=== PATIENT | male | born 1945 | race Caucasian/White ===

== ENCOUNTER → 2023-07-03 12:21 | Outpatient (REF) | payer OTHER, SELFPAY | LOC: PAVMRI 12:21 | PROVIDERS: ATTENDING PHYSICIAN Physician Assistant Surgical; FAMILY PHYSICIAN Family Medicine | DX: M54.50 Low back pain, unspecified (principal); M54.6 Pain in thoracic spine | CPT/HCPCS: 72146; 72148 ==

== ENCOUNTER → 2023-07-29 16:36 | Outpatient (REF) | payer OTHER, SELFPAY | LOC: RAD 16:36 | PROVIDERS: ATTENDING PHYSICIAN Family Medicine | DX: R60.0 Localized edema (principal); R09.89 Other specified symptoms and signs involving the circulatory and respiratory systems | CPT/HCPCS: 71046; 93970 ==

== ENCOUNTER → 2023-07-30 14:37 | Outpatient (REF) | payer OTHER, SELFPAY | LOC: RCS 14:37 | PROVIDERS: ATTENDING PHYSICIAN Nurse Practitioner; FAMILY PHYSICIAN Family Medicine | DX: R06.02 Shortness of breath (principal); I48.0 Paroxysmal atrial fibrillation | CPT/HCPCS: 93306 ==

== ENCOUNTER → 2023-07-31 14:49 | Outpatient (REF) | payer OTHER, SELFPAY ==
[2023-07-31 16:13] LABS: ALT (SGPT) 15 U/L (0-50); AST (SGOT) 24 U/L (17-59); Albumin 4.5 g/dl (3.5-5.0); Alkaline Phosphatase 133 U/L (38-126); Blood Urea Nitrogen 39 mg/dl (9-20); Calcium 9.8 mg/dl (8.4-10.2); Carbon Dioxide 33 mmol/L (22-30); Chloride 96 mmol/L (98-107); Glucose 116 mg/dl (70-99); Magnesium 2.6 mg/dl (1.6-2.3); Potassium 4.7 mmol/L (3.5-5.1); Sodium 141 mmol/L (135-145); Total Bilirubin 0.6 mg/dl (0.2-1.3); Total Protein 7.1 g/dl (6.3-8.2); eGFR 47.95
== END ==
LOC: REG 14:49
PROVIDERS: ATTENDING PHYSICIAN Internal Medicine Cardiovascular Disease; FAMILY PHYSICIAN Family Medicine
DX: R55 Syncope and collapse (principal)
CPT/HCPCS: 36415; 80053; 83735

== ENCOUNTER → 2023-08-03 11:27 | Outpatient (REF) | payer OTHER, SELFPAY ==
[2023-08-03 12:40] LABS: ALT (SGPT) 14 U/L (0-50); AST (SGOT) 25 U/L (17-59); Albumin 4.3 g/dl (3.5-5.0); Alkaline Phosphatase 134 U/L (38-126); Blood Urea Nitrogen 33 mg/dl (9-20); Calcium 9.9 mg/dl (8.4-10.2); Carbon Dioxide 31 mmol/L (22-30); Chloride 101 mmol/L (98-107); Glucose 155 mg/dl (70-99); Potassium 4.8 mmol/L (3.5-5.1); Sodium 138 mmol/L (135-145); Total Bilirubin 0.7 mg/dl (0.2-1.3); Total Protein 6.7 g/dl (6.3-8.2); eGFR 52.09
== END ==
LOC: REG 11:27
PROVIDERS: ATTENDING PHYSICIAN Internal Medicine Cardiovascular Disease; FAMILY PHYSICIAN Family Medicine
DX: N17.9 Acute kidney failure, unspecified (principal)
CPT/HCPCS: 36415; 80053

== ENCOUNTER 2023-09-25 08:30 | Day surgery (SDC) | payer OTHER, SELFPAY ==
[2023-09-25] VITALS (7 sets, daily range): BP systolic 125–166; BP diastolic 71–85; BMI 28.9
[2023-09-25 09:02] LABS: Glucose - Point of Care 122 mg/dl (70-99)
[2023-09-25 13:42] LABS: Glucose - Point of Care 127 mg/dl (70-99)
== END 2023-09-25 15:00 | disposition home or self-care (01) ==
LOC: GI 08:30
PROVIDERS: ATTENDING PHYSICIAN Internal Medicine
DX: D12.0 Benign neoplasm of cecum (principal); D12.3 Benign neoplasm of transverse colon; D12.4 Benign neoplasm of descending colon; K63.89 Other specified diseases of intestine; D12.8 Benign neoplasm of rectum; K62.1 Rectal polyp; R19.5 Other fecal abnormalities; K56.2 Volvulus
CPT/HCPCS: 45380; 88305; 82962

== ENCOUNTER 2023-10-09 08:48 | Emergency (ER) | payer OTHER, SELFPAY ==
[2023-10-09] VITALS (14 sets, daily range): BP systolic 122–160; BP diastolic 61–86; PULSE 2; BMI 29.0
--- NOTE | 2023-10-09 08:54 | ED.GENMED ---
History of Present Illness
General
Chief Complaint: Breathing Problem
Time Seen by Provider: 10/09/23 08:53
Travel History
Have you had any contact with someone who has COVID-19?: No
Do you have any symptoms of coronavirus? Fever > 100 degrees, chills, cough, shortness of breath, sore throat, loss of taste or smell, muscle aches, or headache?: No
History of Present Illness
History of Present Illness:
HPI: The patient came in for shortness of breath. He 'feels terrible'. He also has a headache. He tells me he 'feels like I am breathing through the straw'. Family talk to PMD who sent here. 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 His sats at home has been 87 to 89% on 4 L/min and they did increase his FiO2. Family was concerned because he also seemed a little more confused and there was concern for
CO2 retention. He also has had lower extremity edema but reports no history of CHF and his radio frequency technician did place him on diuretic with improvement of the lower extremity edema.
EXAM:
GENERAL: Is somewhat ill-appearing in moderate distress
HEENT: Moist oral mucosa
CARDIOVASCULAR: No murmurs, normal heart rate, regular rhythm, No chest wall tenderness
PULMONARY: Mild to moderate respiratory distress with decreased breath sounds more so on the right, wheeze bilaterally
ABDOMEN: Soft with no peritoneal signs, no tenderness
NEUROLOGIC: Fair strength all extremities, no coordination deficits
PSYCHIATRIC: Appropriate mental status, normal insight and judgement
EXTREMITIES: Nontender, 1+ bilateral lower extremity edema, moves all extremities equally
SKIN: No rash, no lesions
TIME OF INITIAL ENCOUNTER: 9 AM
NUMBER AND COMPLEXITY OF PROBLEMS ADDRESSED AT THE ENCOUNTER
� Chronic conditions affecting care: Lung transplant, COPD, bronchiolitis obliterans syndrome, lung cancer, high blood pressure, hyperlipidemia, has had DVT
� Acute Exacerbation and/or Progression of Chronic Illness: This is an acute but recurring problem
� Differential Diagnosis includes: Exacerbation of COPD, worsening rejection of lung transplant
AMOUNT AND/OR COMPLEXITY OF DATA TO BE REVIEWED AND ANALYZED
� I performed an independent evaluation of and my interpretation is:
EKG: Sinus 91, nonspecific ST abnormality
CT:
X-rays: I personally viewed chest x-ray and agree with radiologist interpretation, there is pleural effusion as well as increased pulmonary vascular congestion
Laboratory Studies: White count 19.3, hemoglobin 11.3, pH 7.27, pCO2 59, PaO2 of 76, BUN 54 creatinine 1.8, magnesium 3.1, alk phos 133, BNP 4100
Other:
� Review of other/old records: I reviewed old records, the patient was here in November and with a BNP of 1170
� Clinical information was obtained by an independent historian: I spoke to the daughter who is a nurse I also spoke to the at bedside�daughter is considering palliative care if appropriate
� Prescriptions/Medications Considered but not given:
� Further testing considered but not performed:
RISK OF COMPLICATIONS AND/OR MORBIDITY OR MORTALITY OF PATIENT MANAGEMENT
� Social determinants of health affecting care: Lives at home
� Discussion with other providers: Hospitalist for admission at 10:20 AM - wants pt admitted to [facility]. Calling [facility] transfer at 10:27am. At around 10:32 AM the patient has been accepted by Dr. Mauro and we are awaiting
transfer as of 12:30 PM
� Escalation of care including admission/observation vs risk of discharge considered: The patient arrives in moderate respiratory distress. pCO2 is elevated�I have placed him on BiPAP. We have given him IV steroids and DuoNebs.
His BNP is also elevated and I am hoping that BiPAP will help this as well as his hypercapnia. Leukocytosis noted however the patient has not had fevers and has not had cough and have lower suspicion for pneumonia however we did place him on
broad-spectrum antibiotics�Vanco and cefepime..
Past History
Past History
ED Past Medical History: COPD, GERD, HTN, Hypercholesterolemia and Other (Pulmonary fibrosis, lung transplant, [facility])
ED Past Surgical History: Cholecystectomy (2002), Orthopedic and Other (Left lung Transplant. Right upper lobectomy)
Social History
Tobacco: Former smoker
Alcohol: Occasional
Drug: None
Personal:
Living: with family
Employment: Retired
Family History
Family History: Other (Noncontributory)
Phy Exam
Physical Exam
Physical Exam:
See HPI
Scores
Heart Failure Risk
Heart Failure Risk Score: Not Applicable
Course
Orders/Labs/Results
Orders:
Orders
10/09/23 08:55
Electrocardiogram (*1) Stat
Reason for Study: Other
Other Reason for Exam: chest pain
EKG- Treatment ONCE
CR Chest Portable - 1 View Urgent
Comment:
Reason For Exam: sob lung transplant
Reason Study Needs to be Portable: Unable to Transport
10/09/23 09:00
Comprehensive Metabolic Panel Urgent
Magnesium Urgent
NT-proBNP Urgent
Troponin I Urgent
10/09/23 09:02
Acetaminophen [Tylenol] 1,000 mg PO NOW STA
Dexamethasone Pf [Decadron] 10 mg PO NOW STA
Ipratropium/Albuterol Sulfate [Duoneb] 3 ml INH R NOW STA
10/09/23 09:03
Ipratropium/Albuterol Sulfate [Duoneb] 3 ml INH R NOW STA
10/09/23 09:09
CBC/With Diff [Complete Blood Count/With Diff] Urgent
10/09/23 09:20
Dexamethasone Sod Phosphate [Decadron] 10 mg IV NOW STA
10/09/23 09:31
ABG [Arterial Blood Gas] Urgent
%Oxygen/Room Air: 5lpm
10/09/23 09:40
Furosemide [Lasix] 40 mg IV NOW STA
10/09/23 Lunch
2000 calorie (17 carb) Diabetic
At Your Request: Full Participation
10/09/23 10:13
Bipap [RESP] Urgent
Patient to use own unit?: No
Inspiratory Pressure (cm H2O): 12
Expiratory Pressure (cm H2O): 5
10/09/23 10:32
Cefepime HCl [Maxipime] 1,000 mg IV NOW STA
10/09/23 10:52
COVID-19 Antigen Urgent
Source: Nasal Swab
10/09/23 10:57
Vancomycin [Vancocin] 2,000 mg 0.9% Sodium Chloride 500 ml [Nss] 500 ml IV NOW
Abnormal Lab Results
10/09/23 10/09/23 10/09/23
09:00 09:09 09:31
WBC 19.3 H 10^3/uL
(4.8-10.8)
RBC 4.03 L 10^6/uL
(4.70-6.10)
Hgb 11.3 L g/dL
(13.0-18.0)
Hct 35.9 L %
(39.0-52.0)
MCHC 31.5 L g/dL
(33.0-37.0)
RDW 15.4 H %
(11.5-14.5)
Abs Immat Gran (auto) 0.2 H 10^3/uL
(0-0.05)
Absolute Neuts (auto) 17.7 H 10^3/uL
(1.4-6.5)
Absolute Lymphs (auto) 0.2 L 10^3/uL
(1.2-3.4)
Absolute Monos (auto) 1.1 H 10^3/uL
(0.1-0.6)
Immature Gran % 0.8 H %
(0-0.5)
Neutrophils % 92.0 H %
(42.2-75.2)
Lymphocytes % 1.1 L %
(20.5-51.1)
pH 7.27 L
(7.35-7.45)
pCO2 59 H mmHg
(35-48)
pO2 76 L mmHg
(83-108)
BUN 54 H mg/dl
(9-20)
Creatinine 1.8 H mg/dL
(0.7-1.3)
Glucose 235 H mg/dl
(70-99)
Magnesium 3.1 H mg/dl
(1.6-2.3)
Alkaline Phosphatase 133 H U/L
(38-126)
10/09/23 09:09
10/09/23 09:00
Vital Signs
Initial and Last Documented VS:
Initial Vital Signs
Pulse Resp BP Pulse Ox
95 28 160/86 88
10/09/23 08:50 10/09/23 08:50 10/09/23 08:50 10/09/23 08:50
Last Documented Vital Signs
Temp Pulse Resp BP Pulse Ox
98.0 F 83 15 128/73 97
10/09/23 09:33 10/09/23 11:00 10/09/23 11:00 10/09/23 11:00 10/09/23 11:00
*Pulse Oximetry
Patient hypoxic: yes
Comment: 88% on his baseline nasal cannula oxygen
*Critical Care Note
Total Time (30-74mins, 75-104mins- exclusive of procedures): 60min
comment:
Patient is mildly hypercapnic and was placed on BiPAP emergently. He was also treated for COPD exacerbation and was emergently diuresed.
ED Attending Note
-
Portions of this chart may have been created with voice recognition software.� Occasional wrong word or��sound alike� substitutions may have occurred due to the inherent limitations of voice recognition software.
Discharge Plan
Departure
Patient Disposition: Acute Care Hospital
Date of Disposition: 10/09/23
Time of Disposition: 10:19
Patient with high blood pressure during this ER visit?: Yes
Discharge Problem:
COPD (chronic obstructive pulmonary disease), CHF (congestive heart failure)
Prescriptions:
No Action
omeprazole 40 MG capsule,delayed release(DR/EC)
40 mg PO HS
gemfibrozil 600 MG tablet
600 mg PO BID@0800,1200
duloxetine 60 MG capsule,delayed release(DR/EC)
60 mg PO HS
cholecalciferol (vitamin D3) 2,000 UNITS tablet
2,000 units PO DAILY
magnesium chloride [Mag 64] 64 MG tablet,delayed release (DR/EC)
64 mg PO HS
carvedilol 3.125 MG tablet
3.125 mg PO MEALS
acetaminophen 325 MG tablet
975 mg PO DAILY
aspirin 81 MG tablet,chewable
81 mg PO HS
mesalamine 1.2 GM tablet,delayed release (DR/EC)
3.6 gm PO DAILY@1200
albuterol sulfate 2.5 MG/3 ML solution for nebulization
2.5 mg inhalation R BID
gabapentin 300 MG capsule
600 mg PO TID
Envarsus XR 1 MG tablet extended release 24 hr
4 mg PO DAILY
atorvastatin 80 mg tablet
80 mg PO HS Qty: 0 0RF
sulfamethoxazole-trimethoprim 800-160 mg tablet
1 tab PO MOWEFR Qty: 0 0RF
sodium chloride 7 % solution for nebulization
1 inh INHALATION R Q12 Qty: 0 0RF
azithromycin 250 mg Tablet
250 mg PO MOWEFR
oxycodone-acetaminophen 5-325 mg tablet
1 tab PO DAILYPRN PRN (Reason: break through pains)
erythromycin 250 mg Tablet
250 mg PO BID
ascorbic acid (vitamin C) [Vitamin C] 500 mg Tablet
500 mg PO DAILY
budesonide 0.5 mg/2 mL Suspension For Nebulization
0.5 mg INHALATION R DAILY
Prolia 60 mg/mL Syringe
60 mg SC [id number]
Spiriva Respimat 2.5 mcg/actuation Mist
2 inh INHALATION R DAILY
oxycodone [OxyContin] 20 mg tablet,oral only,ext.rel.12 hr
20 mg PO BID
furosemide 40 MG tablet
60 mg PO DAILY
prednisone 5 MG tablet
10 mg PO DAILY
azathioprine 50 mg tablet
50 mg PO DAILY
ferrous sulfate 325 mg (65 mg iron) tablet
325 mg PO HS
ezetimibe 10 mg tablet
10 mg PO NOON
glucosamine-chondroitin [Osteo Bi-Flex] 250-200 mg tablet
1 tab PO NOON
insulin glargine [Lantus Solostar U-100 Insulin] 100 unit/mL (3 mL) insulin pen
30 unit SC NOON
Referrals:
Huy Winters DO [Family Provider] -
Hospital Transfer
Other hospital: [facility]
I certify that the patient requires transfer: Yes
Discussed case with accepting physician: Dr. Mauro
Reason for transfer: continuity of care PCP
Interventions
Interventions:
*Risk Screen - Suicide Last Done: 10/09/23 09:22
*General Assessment Last Done: 10/09/23 09:16
*Neglect/Abuse Screening Last Done: 10/09/23 09:16
*ED COVID-19 Vaccine History Last Done: 10/09/23 08:50
ED- Cardiac Assessment Last Done: 10/09/23 09:22
ED- Pulmonary Assessment Last Done: 10/09/23 09:22
Discharge Date and Time
Print Language: HUNGARIAN
[2023-10-09] MEDS: DUONEB 3 ML INH ×2 (09:20)
[2023-10-09] MEDS: DECADRON 10 MG IV (09:26)
[2023-10-09 09:33] LABS: % Basophils 0.2 % (0-2); % Immature Granulocytes 0.8 % (0-0.5); % Lymphocytes 1.1 % (20.5-51.1); % Monocytes 5.9 % (1.7-9.3); Absolute Immature Granulocytes 0.2 10^3/uL (0-0.05); Absolute Lymphocytes 0.2 10^3/uL (1.2-3.4); Absolute Monocytes 1.1 10^3/uL (0.1-0.6); Absolute Neutrophils 17.7 10^3/uL (1.4-6.5); Hematocrit 35.9 % (39.0-52.0); Hemoglobin 11.3 g/dL (13.0-18.0); Mean Corp Hgb Conc. 31.5 g/dL (33.0-37.0); Mean Corpuscular Volume 89.1 fL (80.0-94.0); Mean Platelet Volume 9.5 fL (7.4-10.4); Nucleated Red Blood Cells % 0.1 % (-); Platelet Count 210 10^3/uL (130-400); Red Blood Cell Count 4.03 10^6/uL (4.70-6.10); Red Cell Dist. Width 15.4 % (11.5-14.5); White Blood Cell Count 19.3 10^3/uL (4.8-10.8)
[2023-10-09 09:40] LABS: NT-proBNP 4100 pg/ml; Troponin I < 0.012 ng/ml
[2023-10-09 09:42] LABS: ALT (SGPT) 20 U/L (0-50); AST (SGOT) 28 U/L (17-59); Alkaline Phosphatase 133 U/L (38-126); Blood Urea Nitrogen 54 mg/dl (9-20); Calcium 8.6 mg/dl (8.4-10.2); Carbon Dioxide 29 mmol/L (22-30); Chloride 100 mmol/L (98-107); Estimated Creatinine Clearance 41 ml/min; Glucose 235 mg/dl (70-99); Magnesium 3.1 mg/dl (1.6-2.3); Potassium 4.7 mmol/L (3.5-5.1); Sodium 141 mmol/L (135-145); Total Bilirubin 0.5 mg/dl (0.2-1.3); eGFR 38.53
[2023-10-09 09:49] LABS: B.E. -1.1 mmol/L; HCO3 27.1 mmol/L (21-28); O2 Saturation % 96.8 % (94-98); PCO2 59 mmHg (35-48); PO2 76 mmHg (83-108); pH 7.27 (7.35-7.45)
[2023-10-09] MEDS: LASIX 40 MG IV (10:19)
[2023-10-09] MEDS: MAXIPIME 1000 MG IV (10:49)
[2023-10-09 11:33] LABS: COVID-19 Antigen Negative (Negative)
[2023-10-09] MEDS: VANCOCIN 540 MG IV (11:47)
--- NOTE | 2023-10-09 13:17 | ED.GENMED ---
History of Present Illness
General
Chief Complaint: Breathing Problem
Time Seen by Provider: 10/09/23 08:53
Travel History
Have you had any contact with someone who has COVID-19?: No
Do you have any symptoms of coronavirus? Fever > 100 degrees, chills, cough, shortness of breath, sore throat, loss of taste or smell, muscle aches, or headache?: No
Past History
Past History
ED Past Medical History: COPD, GERD, HTN, Hypercholesterolemia and Other (Pulmonary fibrosis, lung transplant, [facility])
ED Past Surgical History: Cholecystectomy (2002), Orthopedic and Other (Left lung Transplant. Right upper lobectomy)
Social History
Tobacco: Former smoker
Alcohol: Occasional
Drug: None
Personal:
Living: with family
Employment: Retired
Family History
Family History: Other (Noncontributory)
Course
Orders/Labs/Results
Orders:
Orders
10/09/23 08:55
Electrocardiogram (*1) Stat
Reason for Study: Other
Other Reason for Exam: chest pain
EKG- Treatment ONCE
CR Chest Portable - 1 View Urgent
Comment:
Reason For Exam: sob lung transplant
Reason Study Needs to be Portable: Unable to Transport
10/09/23 09:00
Comprehensive Metabolic Panel Urgent
Magnesium Urgent
NT-proBNP Urgent
Troponin I Urgent
10/09/23 09:02
Acetaminophen [Tylenol] 1,000 mg PO NOW STA
Dexamethasone Pf [Decadron] 10 mg PO NOW STA
Ipratropium/Albuterol Sulfate [Duoneb] 3 ml INH R NOW STA
10/09/23 09:03
Ipratropium/Albuterol Sulfate [Duoneb] 3 ml INH R NOW STA
10/09/23 09:09
CBC/With Diff [Complete Blood Count/With Diff] Urgent
10/09/23 09:20
Dexamethasone Sod Phosphate [Decadron] 10 mg IV NOW STA
10/09/23 09:31
ABG [Arterial Blood Gas] Urgent
%Oxygen/Room Air: 5lpm
10/09/23 09:40
Furosemide [Lasix] 40 mg IV NOW STA
10/09/23 Lunch
2000 calorie (17 carb) Diabetic
At Your Request: Full Participation
10/09/23 10:13
Bipap [RESP] Urgent
Patient to use own unit?: No
Inspiratory Pressure (cm H2O): 12
Expiratory Pressure (cm H2O): 5
10/09/23 10:32
Cefepime HCl [Maxipime] 1,000 mg IV NOW STA
10/09/23 10:52
COVID-19 Antigen Urgent
Source: Nasal Swab
10/09/23 10:57
Vancomycin [Vancocin] 2,000 mg 0.9% Sodium Chloride 500 ml [Nss] 500 ml IV NOW
Abnormal Lab Results
10/09/23 10/09/23 10/09/23
09:00 09:09 09:31
WBC 19.3 H 10^3/uL
(4.8-10.8)
RBC 4.03 L 10^6/uL
(4.70-6.10)
Hgb 11.3 L g/dL
(13.0-18.0)
Hct 35.9 L %
(39.0-52.0)
MCHC 31.5 L g/dL
(33.0-37.0)
RDW 15.4 H %
(11.5-14.5)
Abs Immat Gran (auto) 0.2 H 10^3/uL
(0-0.05)
Absolute Neuts (auto) 17.7 H 10^3/uL
(1.4-6.5)
Absolute Lymphs (auto) 0.2 L 10^3/uL
(1.2-3.4)
Absolute Monos (auto) 1.1 H 10^3/uL
(0.1-0.6)
Immature Gran % 0.8 H %
(0-0.5)
Neutrophils % 92.0 H %
(42.2-75.2)
Lymphocytes % 1.1 L %
(20.5-51.1)
pH 7.27 L
(7.35-7.45)
pCO2 59 H mmHg
(35-48)
pO2 76 L mmHg
(83-108)
BUN 54 H mg/dl
(9-20)
Creatinine 1.8 H mg/dL
(0.7-1.3)
Glucose 235 H mg/dl
(70-99)
Magnesium 3.1 H mg/dl
(1.6-2.3)
Alkaline Phosphatase 133 H U/L
(38-126)
10/09/23 09:09
10/09/23 09:00
Vital Signs
Initial and Last Documented VS:
Initial Vital Signs
Pulse Resp BP Pulse Ox
95 28 160/86 88
10/09/23 08:50 10/09/23 08:50 10/09/23 08:50 10/09/23 08:50
Last Documented Vital Signs
Temp Pulse Resp BP Pulse Ox
98.0 F 83 15 129/76 96
10/09/23 09:33 10/09/23 12:00 10/09/23 12:00 10/09/23 12:00 10/09/23 12:00
ED Attending Note
-
Portions of this chart may have been created with voice recognition software.� Occasional wrong word or��sound alike� substitutions may have occurred due to the inherent limitations of voice recognition software.
Discharge Plan
Departure
Patient Disposition: Acute Care Hospital
Date of Disposition: 10/09/23
Time of Disposition: 10:19
Patient with high blood pressure during this ER visit?: Yes
Discharge Problem:
COPD (chronic obstructive pulmonary disease), CHF (congestive heart failure)
Prescriptions:
No Action
omeprazole 40 MG capsule,delayed release(DR/EC)
40 mg PO HS
gemfibrozil 600 MG tablet
600 mg PO BID@0800,1200
duloxetine 60 MG capsule,delayed release(DR/EC)
60 mg PO HS
cholecalciferol (vitamin D3) 2,000 UNITS tablet
2,000 units PO DAILY
magnesium chloride [Mag 64] 64 MG tablet,delayed release (DR/EC)
64 mg PO HS
carvedilol 3.125 MG tablet
3.125 mg PO MEALS
acetaminophen 325 MG tablet
975 mg PO DAILY
aspirin 81 MG tablet,chewable
81 mg PO HS
mesalamine 1.2 GM tablet,delayed release (DR/EC)
3.6 gm PO DAILY@1200
albuterol sulfate 2.5 MG/3 ML solution for nebulization
2.5 mg inhalation R BID
gabapentin 300 MG capsule
600 mg PO TID
Envarsus XR 1 MG tablet extended release 24 hr
4 mg PO DAILY
atorvastatin 80 mg tablet
80 mg PO HS Qty: 0 0RF
sulfamethoxazole-trimethoprim 800-160 mg tablet
1 tab PO MOWEFR Qty: 0 0RF
sodium chloride 7 % solution for nebulization
1 inh INHALATION R Q12 Qty: 0 0RF
azithromycin 250 mg Tablet
250 mg PO MOWEFR
oxycodone-acetaminophen 5-325 mg tablet
1 tab PO DAILYPRN PRN (Reason: break through pains)
erythromycin 250 mg Tablet
250 mg PO BID
ascorbic acid (vitamin C) [Vitamin C] 500 mg Tablet
500 mg PO DAILY
budesonide 0.5 mg/2 mL Suspension For Nebulization
0.5 mg INHALATION R DAILY
Prolia 60 mg/mL Syringe
60 mg SC [id number]
Spiriva Respimat 2.5 mcg/actuation Mist
2 inh INHALATION R DAILY
oxycodone [OxyContin] 20 mg tablet,oral only,ext.rel.12 hr
20 mg PO BID
furosemide 40 MG tablet
60 mg PO DAILY
prednisone 5 MG tablet
10 mg PO DAILY
azathioprine 50 mg tablet
50 mg PO DAILY
ferrous sulfate 325 mg (65 mg iron) tablet
325 mg PO HS
ezetimibe 10 mg tablet
10 mg PO NOON
glucosamine-chondroitin [Osteo Bi-Flex] 250-200 mg tablet
1 tab PO NOON
insulin glargine [Lantus Solostar U-100 Insulin] 100 unit/mL (3 mL) insulin pen
30 unit SC NOON
Referrals:
Huy Winters DO [Family Provider] -
Hospital Transfer
Other hospital: [facility]
I certify that the patient requires transfer: Yes
Discussed case with accepting physician: Dr. Mauro
Reason for transfer: continuity of care PCP
Interventions
Interventions:
*Risk Screen - Suicide Last Done: 10/09/23 09:22
*General Assessment Last Done: 10/09/23 09:16
*Neglect/Abuse Screening Last Done: 10/09/23 09:16
*ED COVID-19 Vaccine History Last Done: 10/09/23 08:50
ED- Cardiac Assessment Last Done: 10/09/23 09:22
ED- Pulmonary Assessment Last Done: 10/09/23 09:22
Discharge Date and Time
Print Language: NIGERIEN
[2023-10-09 13:18] LABS: Glucose - Point of Care 287 mg/dl (70-99)
[2023-10-09] MEDS: NOVOLOG vial 6 UNITS SC (13:25)
[2023-10-09] MEDS: LANTUS 0.299999999999999989 UNITS SC (15:29)
[2023-10-09] MEDS: ROXICODONE 5 MG PO (15:29)
[2023-10-09] MEDS: DILAUDID 0.5 MG IV (16:57)
== END 2023-10-09 17:35 | disposition short-term general hospital (02) ==
LOC: EMR 08:48
PROVIDERS: EMERGENCY PHYSICIAN Emergency Medicine; FAMILY PHYSICIAN Family Medicine
DX: J44.9 Chronic obstructive pulmonary disease, unspecified (principal); I50.9 Heart failure, unspecified; I11.0 Hypertensive heart disease with heart failure; R51.9 Headache, unspecified; K21.9 Gastro-esophageal reflux disease without esophagitis; D72.829 Elevated white blood cell count, unspecified; E11.9 Type 2 diabetes mellitus without complications; E78.00 Pure hypercholesterolemia, unspecified; J84.10 Pulmonary fibrosis, unspecified; Z87.891 Personal history of nicotine dependence; Z90.49 Acquired absence of other specified parts of digestive tract; Z94.2 Lung transplant status
CPT/HCPCS: 99284; 96365; 96366; 96375; 70450; 71045; 73502; 80053; 82805; 82962; 83735; 83880; 84484; 85025; 87811; 93005; 94660